=== PATIENT | female | born 1955 | race Caucasian/White ===

== ENCOUNTER 2018-04-18 08:55 | Day surgery (SDC) | payer MEDICARE ==
[~2018-04-18] VITALS: Ht 160 cm; Wt 47.2 kg
[2018-04-18 08:00] VITALS: BP 116/68
[2018-04-18] MEDS ORDERED: albumin 25% 50mL bottle X 2 BOTTLES IV ONE (09:15)
[2018-04-18] MEDS ORDERED: normal saline 1000ml 1,000 ML IV PRN (09:15)
--- NOTE | 2018-04-18 09:40 | NUR ---
ULTRASOUND DONE TO ABDOMEN BY DR. BASILIO . NO PARA FLUID PRESENT PER US. PROCEDURE CANCELLED. PATENT DISCHARGED HOME. NO DISTRESS NOTED.
[2018-04-18] MEDS ORDERED: HYDR-4353 PO (10:24)
[2018-04-18] MEDS ORDERED: SENN-173 PO (10:24)
[2018-04-18] MEDS ORDERED: AMYL1CAP57 PO (10:24)
[2018-04-18] MEDS ORDERED: FURO40TA4 PO (10:24)
[2018-04-18] MEDS ORDERED: POTA20TA19 PO (10:24)
[2018-04-18] MEDS ORDERED: DOCU-28 PO (10:24)
[2018-04-18] MEDS ORDERED: LORA-641 PO (10:24)
[2018-04-18] MEDS ORDERED: CALC625T31 PO (10:24)
[2018-04-18] MEDS ORDERED: GABA-532 PO ×2 (10:24)
== END 2018-04-18 09:40 | disposition home or self-care (01) ==
LOC: SSTAY O 08:55
PROVIDERS: ATTEND Radiology Diagnostic Radiology
DX: C25.9 Malignant neoplasm of pancreas, unspecified (principal); Z88.8 Allergy status to other drugs, medicaments and biological substances
CPT/HCPCS: 76705; J7030